=== PATIENT | male | born 1945 | race Caucasian/White ===

== ENCOUNTER 2021-07-24 17:00 | Outpatient (CLI) | payer BC | END 2021-07-24 17:01 | disposition home or self-care (01) | LOC: SLEEPLAB 17:00 | PROVIDERS: ATTEND Otolaryngology Plastic Surgery within the Head & Neck | DX: G47.33 Obstructive sleep apnea (adult) (pediatric) (principal); R53.83 Other fatigue; R06.83 Snoring; I25.10 Atherosclerotic heart disease of native coronary artery without angina pectoris; G47.00 Insomnia, unspecified; J45.909 Unspecified asthma, uncomplicated | CPT/HCPCS: 95800 ==

== ENCOUNTER 2021-09-19 19:00 | Outpatient (CLI) | payer BC | END 2021-09-19 19:01 | disposition home or self-care (01) | LOC: SLEEPLAB 19:00 | PROVIDERS: ATTEND Otolaryngology Plastic Surgery within the Head & Neck | DX: G47.33 Obstructive sleep apnea (adult) (pediatric) (principal); R53.83 Other fatigue; R06.83 Snoring; G47.10 Hypersomnia, unspecified; G47.00 Insomnia, unspecified; G47.61 Periodic limb movement disorder | CPT/HCPCS: 95810 ==

== ENCOUNTER 2023-09-22 15:05 | Outpatient (CLI) | payer BC | END 2023-09-22 15:06 | disposition home or self-care (01) | LOC: SCSRAD 15:05 | PROVIDERS: ATTEND Nurse Practitioner Family | DX: R53.83 Other fatigue (principal) | CPT/HCPCS: 71046 ==